=== PATIENT | male | born 1995 | race African-American/Black ===

== ENCOUNTER 2020-05-06 06:43 | Emergency (ER) | payer OTHER ==
[~2020-05-06] VITALS: Ht 172.7 cm; Wt 82.0 kg
[2020-05-06] MEDS ORDERED: METHYLPREDNISOLONE SOD SUCC 125 MG/2 ML VIAL IV ONE (07:00)
[2020-05-06] MEDS ORDERED: DIPHENHYDRAMINE 50MG/ML VIAL IV ONE (07:00)
[2020-05-06] MEDS ORDERED: FAMOTIDINE 20MG/2ML VIAL IV ONE (07:00)
[2020-05-06] MEDS ORDERED: EPIN0.3P3 IM (08:53)
[2020-05-06] MEDS ORDERED: P50 MT (08:53)
[2020-05-06] MEDS ORDERED: FAMO-135 MT (08:53)
[2020-05-06 09:10] VITALS: BP 146/80
== END 2020-05-06 09:23 | disposition home or self-care (01) ==
LOC: ER 06:43
DX: T78.1XXA Other adverse food reactions, not elsewhere classified, initial encounter (principal); X58.XXXA Exposure to other specified factors, initial encounter
CPT/HCPCS: 93005; 96374; 96375; 99284; J1200; J2930; J3490